=== PATIENT | male | born 1975 | race African-American/Black ===

== ENCOUNTER 2020-07-02 09:42 | Emergency (ER) | payer OTHER, SELFPAY ==
[2020-07-02 10:48] VITALS: BP 133/94; PULSE 109; RESP 16; TEMP 36.6; O2SAT 98; BMI 27.8
--- NOTE | 2020-07-02 11:01 | ED.MALEGU ---
HPI - Male Genitourinary General Chief complaint: Urogenital-Male Stated complaint: BLOOD IN URINE Time Seen by Provider: 07/02/20 10:41 Source: patient Mode of arrival: ambulatory Limitations: no limitations History of Present Illness HPI Narrative: Patient is a 45-year-old male with no significant past medical history who is complaining of burning and penile discharge for 1 week. Patient states he is only sexually active with 1 partner but he has not been active recently as him and his partner have split up. Patient states he has had blood in his urine an abnormal clear colored discharge. He denies abdominal pain or fevers but does endorse slight low back pain. Denies rashes. Related Data Previous Rx's Medication Instructions Recorded doxycycline hyclate 100 mg PO BID 7 Days #14 tab 07/02/20 Allergies Allergy/AdvReac Type Severity Reaction Status Date / Time codeine [Codeine] Allergy Unknown UNKNOWN Unverified 11/20/19 15:07 lactose [LACTOSE] Allergy Unknown UNKNOWN Unverified 11/20/19 15:07 Review of Systems Review of Systems: Yes all other systems are reviewed and are negative [facility] Past Medical History Surgical History H/O hand surgery Previous back surgery Social History Social History (Updated 07/02/20 @ 11:05 by Magi Shi PA-C) Substance Use Type: 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 Last Used Substance Other:: years ago Advance Directives: No Advance Directives Information Provided: No Physical Exam Vital Signs: Vital Signs: Last Vital Signs Temp 97.9 F 07/02/20 10:48 Pulse 109 H 07/02/20 10:48 Resp 16 07/02/20 10:48 BP 133/94 H 07/02/20 10:48 Pulse Ox 98 07/02/20 10:48 Body Mass Index 27.8 Const: General: cooperative, healthy appearing, comfortable and no acute distress Nutritional Appearance: average body habitus Orientation/consciousness: patient oriented x3 Eyes: General: appearance normal, both eyes and all related structures Resp: Effort & Inspection: normal respiratory effort and able to speak in complete sentences GI: Inspection: Yes normal to inspection Palpation (GI): Soft to palpation and nontender : Other: declined General: Yes no CVA tenderness Back/Spine/Pelvis: Back: no CVA tenderness Neuro: General: patient oriented x3 Course Course Course Narrative: 45-year-old male with burning and penile discharge x1 week. VS as patient is slightly tachycardic but this is likely due to anxiety. He is very nervous discussing his symptoms. Agreed to be treated for gonorrhea and chlamydia. Reviewed instructions on follow-up if he tests positive. Will get UA and gonorrhea and chlamydia. MDM - Male Genitourinary Lab Data Attestation: I reviewed the patient's lab results. Labs: Lab Results 07/02/20 Range/Units 10:56 Urine Color YELLOW Urine Appearance CLEAR Urine pH 6.0 (5.0-8.0) Ur Specific [place] 1.020 (1.005-1.025) Urine Protein NEG (NEG-TRACE) MG/DL Urine Glucose (UA) NEG (NEG) MG/DL Urine Ketones NEG (NEG) MG/DL Urine Blood TRACE (NEG) Urine Nitrite NEG (NEG) Ur Leukocyte Esterase NEG (NEG) Urine RBC 0-2 (0) /HPF Urine WBC 1-4 (0-4) /HPF Ur Squamous Epith Cells NONE /LPF Urine Bacteria NONE /LPF Discharge Plan Discharge Clinical Impression: Encounter for assessment of STD exposure, Hematuria, microscopic Patient Disposition: Home, Self-Care Instructions: Sexually Transmitted Diseases (ED), Safe Sex Practices (ED) Additional Instructions: As discussed, if your STI testing comes back positive we will call you. I have sent the prescription for doxycycline to her pharmacy, please take it in full. If you do test positive, please abstain from sexual activity for the next 30 days, please in formal your partners that you have tested positive so they may get treated. Please also get retested in 30 days to ensure you have cleared the disease. Prescriptions: New doxycycline hyclate 100 mg tablet 100 mg PO BID 7 Days Qty: 14 RF: 0
[2020-07-02 11:25] LABS: Glucose Urine UA NEG (NEG); Leukocyte Esterase Urine NEG (NEG); Nitrite Urine NEG (NEG); Urine Blood TRACE (NEG); Urine Ketones NEG (NEG); Urine Protein NEG (NEG-TRACE)
[2020-07-02 11:26] LABS: Appearance Urine CLEAR; Color Urine YELLOW
[2020-07-02 11:35] LABS: RBC Urine 0-2 /HPF (0)
[2020-07-02] MEDS: cefTRIAXone sodium 500 MG, Lidocaine HCl 1 % MPF 1 ML IM (12:05)
[2020-07-02 14:34] LABS: CT PCR NOT DETECTED (Not Detect.); NG PCR NOT DETECTED (Not Detect.)
== END 2020-07-02 12:13 | disposition home or self-care (01) ==
PROVIDERS: Emergency Provider Emergency Medicine; PCP Internal Medicine
DX: Z11.3 Encounter for screening for infections with a predominantly sexual mode of transmission (principal); R31.29 Other microscopic hematuria; R00.0 Tachycardia, unspecified
CPT/HCPCS: 81001; 87491; 87591; 96372; 99283; 99284; J0696

== ENCOUNTER 2024-12-28 18:36 | Emergency (ER) | payer SELFPAY ==
--- NOTE | ~2024-12-28 | US_ITS ---
CLINICAL HISTORY: RUQ pain and tenderness; nausea US abdomen limited Comparison: None provided Findings: Pancreas is overshadowed by bowel gas. The liver is normal in size and echotexture. There is no intrahepatic bile duct dilatation. The common duct is 3 mm in diameter. The gallbladder is normal. The main portal vein is antegrade. The right kidney is 11.1 cm in length. No ascites. IMPRESSION: 1. Normal limited abdominal ultrasound. This document has been electronically signed by: Chevy Bridges MD, PHD on 12/28/2024 23:39:54
--- NOTE | ~2024-12-28 | CT_ITS ---
CLINICAL HISTORY: Right Flank Pain; nausea; Microscopic Hematuria CT abdomen and pelvis with contrast Comparison: US - US ABDOMEN LIMITED - 12/28/24 22:17 EDT Findings: The lung bases are clear. There is questionable minimal fat stranding around the head of the pancreas. Pancreas appears otherwise normal. The liver, gallbladder, spleen, adrenal glands, and kidneys are unremarkable. The appendix is normal. The remainder of the gastrointestinal tract is unremarkable. There is no free fluid or free air. There are few mildly enlarged retroperitoneal lymph nodes. For reference, a left para-aortic lymph node measures 1.4 x 1.7 cm. There is a mildly enlarged left external iliac lymph node measuring 2 x 1.1 cm. The aorta and IVC are normal. The bladder is unremarkable. There is no fracture or suspicious lytic or sclerotic lesion. There are degenerative changes in the lumbar spine. IMPRESSION: 1. Questionable minimal fat stranding around the head of the pancreas. Mild pancreatitis is not excluded. Correlate with lipase. 2. Mildly enlarged retroperitoneal and left external iliac lymph nodes possibly reactive, but indeterminate. This document has been electronically signed by: Nic Kamara MD on 12/29/2024 02:57:25
[2024-12-28 19:01] VITALS: BP 164/99; PULSE 81; RESP 20; TEMP 37.6; O2SAT 98; BMI 27.7
--- NOTE | 2024-12-28 19:04 | ED_ITS ---
HPI - Abdominal Pain General Chief Complaint: Abdominal Pain Stated Complaint: abd pain Time Seen by Provider: 12/28/24 21:38 Source: patient and family Mode of arrival: ambulatory Limitations: no limitations History of Present Illness ED Provider: Tanner WINTER HPI narrative: The patient is a 49-year-old male presenting to the ED for evaluation of right upper quadrant abdominal pain which radiates into his mid back which began around 01:00 this morning. The patient reports the pain woke him from sleep, reports associated nausea without associated dry heaving or vomiting. The patient reports the pain is dull and constant, unrelenting. The patient reports he has a history of recurrent mid to low back pain, however reports that pain is different in character, and waxes and wanes, states this does not feel the same. Patient denies any associated fever/chills, diarrhea, chest pain, shortness of breath, pleurisy, cough, recent sick contacts, or recent trauma. Denies dysuria, hematuria, hematochezia, or melena. The patient denies surgical abdominal history. The patient reports he ate spicy food last night but states this is not abnormal for him. Patient reports earlier today around 13:00 he attempted taking Maalox without relief, also had a prescription for dicyclomine in the house, unclear of the prescription was for him, and patient took this also without relief. The patient denies regular alcohol consumption. Denies history of similar previous symptoms. Related Data Previous Rx's ?Medication ?Instructions ?Recorded doxycycline hyclate 100 mg tablet 100 mg PO BID 7 days #14 tabs 07/02/20 famotidine 20 mg tablet (Pepcid) 20 mg PO BID #28 tabs 12/29/24 sucralfate 1 gram tablet (Carafate) 1 g PO BID #28 tab s 12/29/24 Allergies Allergy/AdvReac Type Severity Reaction Status Date / Time codeine (Codeine) Allergy Unknown UNKNOWN Verified 12/28/24 19:03 lactose (LACTOSE) Allergy Unknown UNKNOWN Verified 12/28/24 19:03 Review of Systems Review of Systems Yes all other systems are reviewed and are negative [facility] Past Medical History Surgical History H/O hand surgery Previous back surgery Social History Social History (Updated 07/02/20 @ 11:05 by Magi Shi PA-C) Smoked in Last 30 Days: No Use of substances other than those prescribed or required for medical reasons: No Substance Use Type: Heroin Advance Directives: No Advance Directives Information Provided: No Do you have a plan to hurt others: No Plan Physical Exam ED Vital Signs: Vital Signs - 24 hr 12/28/24 19:01 12/28/24 20:07 12/28/24 23:56 Temperature 99.6 F 99.3 F Pulse Rate 81 81 84 Respiratory Rate 20 16 16 Blood Pressure 164/99 H 165/97 H 137/98 H Pulse Oximetry 98 98 99 Oxygen Delivery Method Room Air Room Air Room Air BMI result Body Mass Index 27.7 CONSTITUTIONAL: The patient appears non-toxic, well nourished and in no acute distress. Vital signs as documented. HEAD: Atraumatic, normocephalic. EYES: EOMs grossly intact, pupils equal, conjunctiva clear, no exudate. ENT: Nares patent, no discharge. Airway patent, no audible stridor, visible mucosa is pink and moist without noted lesions. NECK: Trachea is midline, no obvious masses or gross abnormalities. CHEST: Symmetric movement, normal appearance. LUNGS: LS present and CTAB, no w/r/r. Non-labored work of breathing. CARDIAC: Regular Rhythm, S1/S2 appreciated, no murmurs, rubs or gallops. ABDOMEN: Abdomen soft x4 quadrants, moderate tenderness of the right upper quadrant, negative Diana's, negative rebound, no palpable masses or organomegaly. Negative CVAT bilaterally. : Deferred. EXTREMITIES: Normal tone, moves all extremities spontaneously without reported pain. No obvious acute injury or deformity noted. NEURO: Alert and oriented x3, CN II-XII appear grossly intact. Cerebellar Functioning grossly intact. No obvious sensory or motor deficits. Speech clear and appropriate. PSYCH: normal affect, appropriate eye contact, fluid speech, with appropriate response to questioning. No reported suicidality or homicidality. SKIN: Warm, dry, color appropriate, normal turgor. No rashes noted. Course Course Course Narrative: Rnadi Danielleberny [employer]CH[employer]ICIAN 12/29 1903 This is a rapid medical exam. Deferred additional HPI, ROS, PE to primary provider. 49 yo male healthy here with RUQ since 1am, nausea, no vomiting. Will obtain labs Will defer US until he is seen by primary provider as he is private pay VSS Medical Decision Making Medical Decision Making MDM Narrative: 11:29 PM 12/28/2024 (Vianca WINTER): The patient is a 49-year-old male presenting to the ED for evaluation of right upper quadrant abdominal pain which radiates into his mid back which began around 01:00 this morning. The patient reports the pain woke him from sleep, reports associated nausea without associated dry heaving or vomiting. The patient reports the pain is dull and constant, unrelenting. The patient reports he has a history of recurrent mid to low back pain, however reports that pain is different in character, and waxes and wanes, states this does not feel the same. Patient denies any associated fever/chills, diarrhea, chest pain, shortness of breath, pleurisy, cough, recent sick contacts, or recent trauma. Denies dysuria, hematuria, hematochezia, or melena. The patient denies surgical abdominal history. The patient reports he ate spicy food last night but states this is not abnormal for him. Patient reports earlier today around 13:00 he attempted taking Maalox without relief, also had a prescription for dicyclomine in the house, unclear of the prescription was for him, and patient took this also without relief. The patient denies regular alcohol consumption. Denies history of similar previous symptoms. The patient in the ED appears in no acute distress, there is positive right upper quadrant tenderness without associated rebound, negative Diana's, negative CVAT bilaterally. The patient's laboratory evaluation shows no leukocytosis, significant anemia, electrolyte abnormality, or ADAM. The patient's LFTs are unremarkable, lipase normal, urinalysis shows trace blood on dip, however there are no RBCs on microscopic, no evidence of infection. Patient was sent for an ultrasound of the right upper quadrant. We will provide GI cocktail and await Radiology interpretation of ultrasound. If ultrasound is negative for cholecystic pathology we will consider CT to evaluate for ureterolithiasis in the setting of nausea with blood on urine dipstick. 12:03 AM 12/29/2024 (Vianca WINTER): Patient's gallbladder ultrasound shows no acute process, patient will be sent for CT. 3:20 AM 12/29/2024 (Vianca WINTER): The patient's CT shows minimal stranding around the head of the pancreas, however lipase is normal. There are also 2 enlarged retroperitoneal lymph nodes, likely reactive, no other acute findings, gallbladder, appendix, and bowels are unremarkable. The patient reports significant improvement in his symptoms following GI cocktail, however reports symptoms are now beginning to return, we will treat with an additional GI cocktail. Patient is likely suffering from duodenal ulcer. Patient was going to be discharged with Pepcid and omeprazole for 2 weeks, however patient request an alternative to omeprazole due to a lawsuit he remembers regarding omeprazole from 2013. Patient will be discharged instead with 2 weeks of Pepcid and Carafate, as well as GI referral. Admission/Observation Consideration of admission/observation: Escalation of care including admission/observation considered Lab Data MDM Lab Attestation statement: I reviewed the patient's lab results. 12/28/24 19:32 12/28/24 19:32 Labs: Lab Results 12/28/24 12/28/24 Range/Units 19:32 20:19 WBC 10.4 (4.8-10.8) X10*3/uL RBC 4.90 (4.60-5.80) X10*6/uL Hgb 13.7 L (14.0-18.0) g/dl Hct 39.5 L (42.0-52.0) % MCV 80.6 (80.0-98.0) fL MCH 28.0 (27.0-33.0) pg MCHC 34.7 (31.0-36.0) g/dl RDW 13.1 (11.0-16.0) % Plt Count 223 (160-400) X10*3/uL MPV 8.6 L (9.4-12.4) fL Immature Gran % (Auto) 0.2 (0.0-0.4) % Neut % (Auto) 87.4 H (45-73) % Lymph % (Auto) 6.0 L (20-40) % [place] % (Auto) 5.8 (2-11) % Eos % (Auto) 0.5 (0-4) % Baso % (Auto) 0.1 (0-2) % Lymph # (Auto) 0.6 L (1.2-4.9) X10*3/uL [place] # (Auto) 0.6 (0.1-1.2) X10*3/uL Eos # (Auto) 0.1 (0.0-0.4) X10*3/uL Baso # (Auto) 0.0 (0.0-0.2) X10*3/uL Abs Immat Gran (auto) 0.02 (0.00-0.03) X10*3/uL Absolute Neuts (auto) 9.1 H (2.0-8.3) x10*3/uL Absolute Nucleated RBC 0.000 (0.0-0.012) X10*3/uL Nucleated RBC % (auto) 0.0 (0.0-0.2) /100WBC Sodium 139 (135-145) mmol/L Potassium 4.0 (3.3-5.1) mmol/L Chloride 105 (96-108) mmol/L Carbon Dioxide 24 (22-29) mmol/L Anion Gap 14 (12-20) BUN 15 (9-16) mg/dL Creatinine 1.14 (0.5-1.4) mg/dL Estim Creat Clear Calc 83.4 Estimated GFR > 60 Random Glucose 101 (60-115) mg/dL Calcium 9.5 (8.4-10.2) mg/dL Total Bilirubin 0.9 (0.0-1.0) mg/dL Direct Bilirubin 0.3 (0.0-0.5) mg/dL AST 29 (5-37) U/L ALT 24 (0-40) U/L Alkaline Phosphatase 73 (39-117) U/L Total Protein 7.9 (6.5-8.0) g/dL Albumin 4.9 (3.5-5.0) g/dL Lipase 22 (8-78) U/L Urine Color Yellow Urine Appearance Clear Urine pH 5.5 (5.0-9.0) Ur Specific [place] 1.015 (1.005-1.025) Urine Protein Negative (Neg-Trace) mg/dL Urine Glucose (UA) Negative (Negative) mg/dL Urine Ketones Trace (Negative) mg/dL Urine Blood Trace H (Negative) Urine Nitrite Negative (Negative) Ur Leukocyte Esterase Negative (Negative) Urine RBC 0-2 (0-2) /HPF Urine WBC 0-5 (0-5) /HPF Ur Squamous Epith Cells 0-2 (0-2) /HPF Urine Bacteria None Seen (None Seen) Hyaline Casts 0-2 (0-2) /LPF Radiology Impression Discussion of test interpretation with radiology: I have reviewed the radiologist's reading. Radiologist Impression: CLINICAL HISTORY: RUQ pain and tenderness; nausea US abdomen limited Comparison: None provided Findings: Pancreas is overshadowed by bowel gas. The liver is normal in size and echotexture. There is no intrahepatic bile duct dilatation. The common duct is 3 mm in diameter. The gallbladder is normal. The main portal vein is antegrade. The right kidney is 11.1 cm in length. No ascites. IMPRESSION: 1. Normal limited abdominal ultrasound. This document has been electronically signed by: Chevy Bridges MD, PHD on 12/28/2024 23:39:54 CT abdomen and pelvis with contrast Comparison: US - US ABDOMEN LIMITED - 12/28/24 22:17 EDT Findings: The lung bases are clear. There is questionable minimal fat stranding around the head of the pancreas. Pancreas appears otherwise normal. The liver, gallbladder, spleen, adrenal glands, and kidneys are unremarkable. The appendix is normal. The remainder of the gastrointestinal tract is unremarkable. There is no free fluid or free air. There are few mildly enlarged retroperitoneal lymph nodes. For reference, a left para-aortic lymph node measures 1.4 x 1.7 cm. There is a mildly enlarged left external iliac lymph node measuring 2 x 1.1 cm. The aorta and IVC are normal. The bladder is unremarkable. There is no fracture or suspicious lytic or sclerotic lesion. There are degenerative changes in the lumbar spine. IMPRESSION: 1. Questionable minimal fat stranding around the head of the pancreas. Mild pancreatitis is not excluded. Correlate with lipase. 2. Mildly enlarged retroperitoneal and left external iliac lymph nodes possibly reactive, but indeterminate. This document has been electronically signed by: Nic Kamara MD on 12/29/2024 02:57:25 External Record Review External record reviewed: Outpatient record and Prior outpatient labs Medications Administered Discontinued Medications Generic Name Dose Route Start Last Admin Trade Name Maxwell PRN Reason Stop Dose Admin Al Hydroxide/Mg Hydroxide 30 ml 12/28/24 23:26 12/28/24 23:55 Magnesium Hydrox/Alum Hydrox 30 Ml Oral.Susp PO 12/28/24 23:27 30 ml ONCE ONE Administration Al Hydroxide/Mg Hydroxide 30 ml 12/29/24 03:36 12/29/24 03:47 Magnesium Hydrox/Alum Hydrox 30 Ml Oral.Susp PO 12/29/24 03:37 30 ml ONCE ONE Administration Famotidine 20 mg 12/28/24 23:26 12/28/24 23:54 Famotidine 20 Mg Tablet PO 12/28/24 23:27 20 mg ONCE ONE Administration Iohexol 85 ml 12/29/24 00:32 12/29/24 00:32 Iohexol 350 Mg/Ml 100 Ml Infus..Btl IV 12/29/24 00:33 85 ml ONCE ONE Administration Lidocaine HCl 15 ml 12/28/24 23:26 12/28/24 23:55 Lidocaine Hcl Viscous 2 % 15 Ml Solution PO 12/28/24 23:27 15 ml ONCE ONE Administration Lidocaine HCl 15 ml 12/29/24 03:36 12/29/24 03:47 Lidocaine Hcl Viscous 2 % 15 Ml Solution PO 12/29/24 03:37 15 ml ONCE ONE Administration Discharge Plan Discharge Clinical Impression: Peptic ulcer Patient Disposition: Home, Self-Care Instructions: Peptic Ulcer (ED), Diet for Stomach Ulcers and Gastritis (ED) Additional Instructions: Thank you for choosing [facility]'s Emergency Department for your care today. Thankfully your ultrasound showed no evidence of gallstones or gallbladder infection. Your CT showed no evidence of appendicitis, kidney stones, or bowel obstruction. At this time there is no evidence of an acute surgical or otherwise dangerous process causing your symptoms, there is no indication for admission to the hospital or continued ED observation, and it is safe to discharge you home. Your CT did show evidence of some inflammation around the head of your pancreas, and reactive lymph nodes in your retroperitoneum (the space behind your abdominal cavity). Given the nature of your symptoms, the improvement in your symptoms with a GI cocktail, and these CT findings it is possible your symptoms may be related to inflammation versus ulceration of your duodenum, the 1st portion of your small intestine. The definitive assessment for confirming this diagnosis is to follow up with a GI physician for endoscopy. Please follow up with our GI clinic by calling the number provided. We are treating you with 2 weeks of Pepcid and carafate, please take these as prescribed until they are finished. Please also follow up with your primary care physician for re-evaluation, additional management of your symptoms, and continued preventative care. If you do not have a primary care physician, please call the [facility] at [phone] to establish a new primary care physician. While waiting to establish your new primary care physician, you can call our Walk-in Care Clinic at [phone] for non-emergency needs. Please return to the emergency department if you develop a severe or sudden change in your symptoms, a fever over 100.4 that does not improve with Tylenol or Ibuprofen, recurrent vomiting, or any other new or worsening symptoms or concerns. Prescriptions: New sucralfate [Carafate] 1 gram tablet 1 g PO BID Qty: 28 0RF famotidine [Pepcid] 20 mg tablet 20 mg PO BID Qty: 28 0RF No Action doxycycline hyclate 100 mg tablet 100 mg PO BID 7 Days Qty: 14 0RF Referrals: [facility] [Provider Group, Gastroenterology] Clinical Impression: Peptic ulcer Stand Alone Forms: Work/School Release Print Language: Haitian
[2024-12-28 19:39] LABS: MANUAL DIFF FLAG NO
[2024-12-28 19:41] LABS: Hematocrit 39.5 % (42.0-52.0); Hemoglobin 13.7 g/dl (14.0-18.0); Imm Gran Abs Auto 0.02 X10*3/uL (0.00-0.03); Imm Gran Pct Auto 0.2 % (0.0-0.4); Lymphocytes Absolute Auto 0.6 X10*3/uL (1.2-4.9); Mean Corpuscular HGB Conc 34.7 g/dl (31.0-36.0); Mean Corpuscular Hemoglobin 28.0 pg (27.0-33.0); Mean Corpuscular Volume 80.6 fL (80.0-98.0); NRBC Abs Auto 0.000 X10*3/uL (0.0-0.012); NRBC Pct Auto 0.0 /100WBC (0.0-0.2); Platelet Count 223 X10*3/uL (160-400); Red Blood Count 4.90 X10*6/uL (4.60-5.80); White Blood Count 10.4 X10*3/uL (4.8-10.8)
[2024-12-28 20:00] LABS: Alanine Aminotransferase 24 U/L (0-40); Albumin Level 4.9 g/dL (3.5-5.0); Alkaline Phosphatase 73 U/L (39-117); Anion Gap 14 (12-20); Aspartate Amino Transferase 29 U/L (5-37); Blood Urea Nitrogen 15 mg/dL (9-16); Calcium 9.5 mg/dL (8.4-10.2); Carbon Dioxide 24 mmol/L (22-29); Chloride 105 mmol/L (96-108); Creatinine Clr Calc Pharmacy 83.4; Estimated Glomerular Filt Rate > 60; Potassium 4.0 mmol/L (3.3-5.1); Sodium 139 mmol/L (135-145); Total Protein 7.9 g/dL (6.5-8.0)
[2024-12-28 20:07] VITALS: BP 165/97; PULSE 81; RESP 16; TEMP 37.4; O2SAT 98
[2024-12-28 20:26] LABS: Appearance Urine Clear; Glucose Urine UA Negative (Negative); PH 5.5 (5.0-9.0); Specific Gravity - Urine 1.015 (1.005-1.025); UMIC TRIGGER UA YES
--- OUTSIDE RECORDS SUMMARY | 2024-12-28 20:29 | XMS_ITS | Clinical Summary ---
Author Organization [facility] ystem Address [address] [place] [address] Phone Care Team Providers Care Crib Tender Name Role Phone Required, No Pcp/Pcp Not Primary Care Provider U navailable Allergies No known active allergies Medications No known medications Social History Tobacco Use Types Packs/Day Years Used Date Smoking Tobacco: Never Assessed Sex and Gender Information Value Date Recorded Sex Assigned at Not on file Legal Sex Male 8:52 AM EST Gender Identity Not on file Sexual Orientation Not on file Last Filed Vital Signs Vital Sign Reading Time Taken Comments Blood Pressure 110/84 12/08/2021 1:04 PM EDT Pulse 66 12/08/2021 1:04 PM EDT Temperature 37 C (98.6 F) 12/08/2021 1:04 PM EDT Respiratory Rate 16 12/08/2021 1:04 PM EDT Oxygen Saturation 100% 12/08/2021 1:04 PM EDT Inhaled Oxygen Concentration - - Weight 88.5 kg (195 lb) 12/08/2021 10:22 AM EDT Height 180.3 cm (5' 11 ) 04/20/2021 8:57 AM EST Body Mass Index 27.2 04/20/2021 8:57 AM EST Plan of Treatment Health Maintenance Due Date Last Done Comments [facility] TOPIC SIGMOIDOSCOPY [address] [facility] Topic HIV Screening [address] [facility] Topic PSA 1975 [facility] Topic Tdap Vaccine (1 - Tdap) 1994 [facility] Topic Lipid Profile 5 years 1997 [facility] TOPIC FOBT/FIT TEST 01/02/2020 [facility] Topic Cologuard 01/02/2020 [facility] Topic Colon Cancer Screening 01/02/2020 [facility] Topic Colonoscopy 01/02/2020 [facility] Topic Influenza (Flu) Seasonal (#1) 2024 [facility] Topic Shingrix (1 of 2) 2025 [facility] AMB RSV (under 20 months) Aged Out No longer eligible based on patient's age to complete this topic [facility] Topic HIB Vaccines Aged Out No longer eligible based on patient's age to complete this topic Insurance [facility] DIRECT [facility] POS [employer] Alliance Party Liability [employer] HMO POS [facility] DIRECT Care Teams Crib Tender Relationship Specialty Start Date End Date Required, No Pcp/Pcp Not [address] [place] [address] PCP - General Employee Benefits Insurance Agent 04/20/21
[2024-12-28 21:55] LABS: Lipase 22 U/L (8-78)
[2024-12-28] MEDS: Lidocaine HCl Viscous 2 % 15 ML SOLUTION PO (23:55)
[2024-12-28] MEDS: Magnesium Hydrox/Alum Hydrox 30 ML ORAL.SUSP PO (23:55)
[2024-12-28 23:56] VITALS: BP 137/98; PULSE 84; RESP 16; O2SAT 99
[2024-12-29] MEDS: iohexoL 350 MG/ML 100 ML INFUS..BTL 85 ML IV (00:32)
[2024-12-29] MEDS: Lidocaine HCl Viscous 2 % 15 ML SOLUTION PO (03:47)
[2024-12-29] MEDS: Magnesium Hydrox/Alum Hydrox 30 ML ORAL.SUSP PO (03:47)
[2024-12-29 04:22] VITALS: BP 137/98; PULSE 84; RESP 16; TEMP 36.6; O2SAT 99
== END 2024-12-29 04:22 | disposition home or self-care (01) ==
PROVIDERS: Nurse Practitioner Family; Physician Assistant; Emergency Provider Emergency Medicine
DX: K27.9 Peptic ulcer, site unspecified, unspecified as acute or chronic, without hemorrhage or perforation (principal); K29.70 Gastritis, unspecified, without bleeding
CPT/HCPCS: 36415; 74177; 76705; 80048; 80076; 81001; 83690; 85025; 99284; 99285; Q9967

== ENCOUNTER → 2024-12-28 21:42 | Outpatient (BNV) | payer SELFPAY | PROVIDERS: Emergency Provider Emergency Medicine; Visit Provider General Practice | DX: R10.11 Right upper quadrant pain (principal); R11.0 Nausea | CPT/HCPCS: 76705 ==

== ENCOUNTER → 2024-12-29 00:01 | Outpatient (BNV) | payer SELFPAY | PROVIDERS: Emergency Provider Emergency Medicine; Visit Provider Radiology Diagnostic Radiology | DX: R59.0 Localized enlarged lymph nodes (principal) | CPT/HCPCS: 74177 ==